=== PATIENT | male | born 1940 | race Caucasian/White ===

== ENCOUNTER 2024-03-17 06:56 | Day surgery (SDC) | payer MEDICARE, BC, SELFPAY ==
[2024-03-17] VITALS (21 sets, daily range): BP systolic 93–153; BP diastolic 69–93; PULSE 50–104; RESP 12–18; TEMP 35.3–36.4; O2SAT 92–98; BMI 30.6
[2024-03-17] MEDS: LACTATED RINGERS 1000 ML 1,000 ML 100 ML IV (07:10)
--- NOTE | 2024-03-17 07:28 | W.PM.H&PU ---
History & Physical Update History & Physical Update H&P Reviewed and patient assessed: No changes noted
--- NOTE | 2024-03-17 07:29 | XR_ITS ---
Patient: DENISE SRINIVASAN Facility:?[facility] Patient ID:?[id number] Site Patient ID:?[id number]. Site :?[id number] Study:?XRay-Knee Right 2 VIEW-03/17/2024 11:51:56 AM Ordering Physician:?LESIA GAONA Final Report: Indication: Postop TKA Technique: Two views right knee Findings/Impression: Hardware from a right total knee arthroplasty is in satisfactory position. Bone alignment is normal. No sign of acute fracture. Postop changes are within normal limits. Dictated by Lei Dash MD @ 03/17/2024 12:49:01 PM Signed by:?Lei Dash MD @03/17/2024 12:49:01 PM (Electronic Signature)
--- NOTE | 2024-03-17 07:52 | SUR.PREOP ---
Patient states he is ok with iodine topical scrubs. Dr. Nava states repairer typewriter okay to proceed with Profend Nasal Decolonization kit.
[2024-03-17] MEDS: OXYCODONE (CR) 10 MG TAB.ER.12H PO (08:09)
[2024-03-17] MEDS: ACETAMINOPHEN 500 MG TABLET 1000 MG PO ×3 (08:09→21:56)
--- NOTE | 2024-03-17 08:26 | SUR.PREOP ---
TIME?OUT:?08 PT/RN/MDA?VERIFICATION?OF?SURGICAL?SITE,?PROCEDURE,?AND?CONSENT OBTAINED?PRIOR?TO?INVASIVE?PROCEDURE.
[2024-03-17] MEDS: fentaNYL 100 MCG/2 ML inj IVP (08:34)
[2024-03-17] MEDS: MIDAZOLAM HCL 1 MG/ML inj IVP (08:34)
[2024-03-17] MEDS: CEFAZOLIN 2 GM in 0.9 % SODIUM CHLORIDE Mini-bag 100 ML IVPB ×3 (08:53→23:32)
[2024-03-17] MEDS: TRANEXAMIC ACID 100 MG/ML INJ 1000 MG IV (08:53)
--- NOTE | 2024-03-17 10:11 | P.ORPRC_ITS ---
Procedure Note Date of procedure: 03/17/24 Procedure: PREOPERATIVE DIAGNOSIS: 1. Right knee osteoarthritis, primary, severe POSTOPERATIVE DIAGNOSIS: 1. Right knee osteoarthritis, primary, severe PROCEDURE: 1. Right total knee arthroplasty - subvastus SURGEON: Robbie Duffy MD. IRRIGATION EQUIPMENT REMOVER: ANDREW Mccall - Of note, a skilled radiology practitioner assistant was critical for this case to aid in patient positioning, tissue retraction, limb manipulation/positioning, and closure. ANESTHESIA: Spinal anesthetic IMPLANTS: DePuy J&J all cemented TKA - Attune PS femur size 6 standard size 6 tibia, 5 poly spacer, 41mm patella TOURNIQUET: 90 min at 300 torr EBL: 50 ml COMPLICATIONS: None evident INDICATIONS: The patient is a pleasant 83-year-old male who has experienced severe right knee pain and difficulty bearing weight. Workup included x-rays which revealed severe osteoarthrosis in the knee. Given the deformity, the dysfunction, and the pain, as well as the failure of nonoperative management, recommendation was made for surgery. FINDINGS: Full-thickness chondral loss diffusely throughout the medial, lateral, and patellofemoral compartments. Moderate effusion upon entering the joint. Osteophytes diffusely including in the posterior compartment. DESCRIPTION OF PROCEDURE: Following a thorough discussion of risks, benefits, and alternatives consent was obtained and the right knee was marked. The patient was brought to the operating room and placed supine on the operating table. Induction of anesthesia was undertaken. 2 g IV Ancef and 1 g tranexamic acid was administered within 1 hr of incision preoperatively. Proper time-out was performed identifying proper patient, site, procedure. The operative extremity was prepped and draped in the appropriate sterile fashion using ChloraPrep after the patient was positioned supine with all bony prominences well padded. A longitudinal, anterior, midline skin incision was made starting approximately 3cm proximal to the superior pole of the patella and advanced distal to the tibial tubercle. A subvastus approach was utilized. A medial subperiosteal sleeve was created with knife, stallworth elevator and curved osteotome. The retropatellar fatpad was resected and the synovium in the suprapatellar pouch excised to visualize the anterior femoral cortex. Femoral preparation was performed via an intramedullary guide. Step drill allowed access into the femoral canal. The distal cutting guide was placed with 5? of valgus and 11 mm cut on the distal femur due to a 7-10 degree flexion contracture. Femur was sized using a anterior referencing guide in 3? of external rotation. This found have a best fit with the sizing noted above. The 4 in 1 cutting block was then placed, and the distal femur shaped accordingly. The box cut was then created and the trial implant inserted to confirm appropriate fit. We turned our attention to the proximal tibia. Extramedullary guide was utilized for cutting with the goal of being 90 degree cut from the mechanical axis of the tibia in the varus/valgus plane utilizing tibial crest as the primary alignment. Initially a 2 mm resection was performed from the medial tibial plateau. Ultimately, balancing was achieved in both flexion and extension in both varus and valgus. The knee was able to achieve full extension as well comfortably. The patella was initially measured and found have a thickness of 24 mm. It was resected back to approximately 14 mm. It was sized to be a best fit with as noted above. This was drilled, trial placed. All trials were placed and found to have an excellent stability and balance. At this stage, trial implants were removed, the knee was thoroughly irrigated with normal saline, and the cement was mixed. After irrigation, the knee was thoroughly dried, and cement placed, with the real tibial and femoral implants placed along with the patella. Trial poly spacer was placed and confirmed to have excellent range of motion and full extension, and the real poly spacer opened and inserted. All extra cement was removed, and a 3 min Betadine soak performed. Finally, a final irrigation round with normal saline was performed. Closure performed with 0 Vicryl and #0 Stratafix for the quad tendon/retinaculum. 2-0 Vicryl for the subcutaneous and 4-0 Stratafix for subcuticular closure. Dressings were applied and the patient was awoken from anesthesia after the tourniquet deflated and transferred the PACU in stable condition. A skilled radiology practitioner assistant was critical for this case to aid in patient positioning, tissue retraction, bone exposure, limb manipulation/positioning, patient safety, and closure. PLAN: 1. Weight bear as tolerated operative extremity. 2. 23 hr perioperative antibiotics. 3. Ice. 4. PT/OT consults for ambulation assistance/mobility education. 5. Social work consult for discharge planning. 6. DVT prophylaxis with at SCDs and aspirin twice daily.
--- NOTE | 2024-03-17 10:50 | W.ANESCHARGE ---
Anesthesia Charges Start Date/Time Anesthesia Start Date: 03/17/24 Anesthesia Start Time: 08:40 Stop Date/Time Anesthesia Stop Date: 03/17/24 Anesthesia Stop Time: 10:48
--- NOTE | 2024-03-17 10:57 | P.NB_ITS ---
Nerve Block Nerve Block Time Seen by Provider: 08:30 Date Seen: 03/17/24 Type of block requested by surgeon for post-operative analgesia: adductor canal Side: right Time out performed: Yes Verification of patient name: Yes Verification of date of : Yes Site marking: site marked Name of person performing procedure: Diogo Continuous monitoring Was continuous monitoring of O2 sat, B/P, color television console monitor, recorded every 15 minutes?: Yes Procedure Checklist: sterile prep, needles and gloves Ultrasound guided. Images saved: Yes Medications given in 5ml increments after negative aspiration: Ropivicaine %: 0.5 mL: 20 Needle gauge: 20 Decadron (mg): 10 Precedex (mcg): 25 Patient tolerated procedure well: Yes Additional comments: Needle noted adjacent to nerve Block Charges Block Charge (with Pro Fee): Femoral Nerve Use of Ultrasound Machine for Block: Yes- US Guidance/pain block
--- NOTE | 2024-03-17 10:58 | P.NB_ITS ---
Nerve Block Nerve Block Time Seen by Provider: 08:30 Date Seen: 03/17/24 Type of block requested by surgeon for post-operative analgesia: geniculars Side: right Time out performed: Yes Verification of patient name: Yes Verification of date of : Yes Site marking: site marked Name of person performing procedure: Diogo Continuous monitoring Was continuous monitoring of O2 sat, B/P, laboratory monitor, recorded every 15 minutes?: Yes Procedure Checklist: sterile prep, needles and gloves Medications given in 5ml increments after negative aspiration: Ropivicaine %: 0.5 mL: 9 Needle gauge: 25 Patient tolerated procedure well: Yes Block Charges Block Charge (with Pro Fee): Genicular Nerve Block Use of Ultrasound Machine for Block: No
--- NOTE | 2024-03-17 10:58 | W.ANESCHARGE ---
Anesthesia Charges Start Date/Time Anesthesia Start Date: 03/17/24 Anesthesia Start Time: 08:40 Stop Date/Time Anesthesia Stop Date: 03/17/24 Anesthesia Stop Time: 10:48 Summary Extremes of Age - Over 70 or under 1: MDA
[2024-03-17] MEDS: LACTATED RINGERS 1000 ML 1,000 ML 35 ML IV (11:21)
--- NOTE | 2024-03-17 11:23 | SUR.PHASEI ---
patient met discharge criteria per anesthesia
[2024-03-17] MEDS: OXYCODONE 5 MG TABLET PO (14:40)
--- NOTE | 2024-03-17 15:37 | PM.IMCN1 ---
Date of Consult Patient: [place] Patient Consult date: 03/17/24 Requesting Physician: Orthopedics Primary Care Provider: Branden Alvarenga MD Consult Narrative Reason for consult: Medical Management of Comorbidities Narrative: Jefferson Tan is a 83 year old male who presented to the hospital today for an elective RTKA with Dr. Duffy today. There were no surgical or anesthetic complications noted during procedure. Patient's H&P reviewed, PCP is Dr Alvarenga at [facility]. Past medical history significant for: diet controlled pre-DM2 (last A1C 6.3), essential HTN, prostate cancer, s/p TURP History of blood clots: No DVT or PE. Had a TIA in 1996 (this was one week after an elective hernia repair). No complications following his R TKA in 2013 Postoperative plan: Home (daughter and son-in-law will stay with him) Review of Systems Status of ROS: Reports: 10 or more systems reviewed and unremarkable except as noted in History and below [facility] Medical History (Updated 03/17/24 @ 15:36 by Tanisha Savage MD) Type 2 diabetes mellitus ?E11.9 - Type 2 diabetes mellitus without complications (ICD-10) TIA (transient ischemic attack) ?G45.9 - Transient cerebral ischemic attack, unspecified (ICD-10) Prostate cancer ?C61 - Malignant neoplasm of prostate (ICD-10) Hypertension ?I10 - Essential (primary) hypertension (ICD-10) Surgical History (Updated 03/17/24 @ 15:38 by Tanisha Savage MD) Status post right knee replacement ?Z96.651 - Presence of right artificial knee joint (ICD-10) S/P TURP ?Z90.79 - Acquired absence of other genital organ(s) (ICD-10) History of total left knee replacement ?Z96.652 - Presence of left artificial knee joint (ICD-10) H/O hernia repair ?Z98.890 - Other specified postprocedural states (ICD-10) ?Z87.19 - Personal history of other diseases of the digestive system (ICD-10) History of cholecystectomy ?Z90.49 - Acquired absence of other specified parts of digestive tract (ICD-10) History of carpal tunnel surgery of left wrist (02/11/22) ?Z98.890 - Other specified postprocedural states (ICD-10) Social History Problems where you live: no known problems Smoking Status: Never smoker Do you use any of these nicotine containing products: None How often do you have a drink containing alcohol: 4 or more times a week AUDIT-C Alcohol total score: 4 Non-prescribed substance use: denies use Caffeine: Yes Meds Home Medications and Allergies Home Medications Medication Instructions Recorded Confirmed Type aspirin 81 mg chewable tablet 81 mg PO DAILY 01/27/24 03/17/24 History hydrochlorothiazide 25 mg tablet 25 mg PO DAILY 01/27/24 03/15/24 History lisinopril 40 mg tablet 40 mg PO DAILY 01/27/24 03/15/24 History cholecalciferol (vitamin D3) 50 2,000 unit PO DAILY 03/15/24 03/15/24 History mcg (2,000 unit) capsule multivitamin 1 tab PO DAILY 03/15/24 03/15/24 History diphenhydramine HCl 25 mg capsule 25 mg PO HS PRN 03/17/24 03/17/24 History (Allergy (diphenhydramine)) Allergies Allergy/AdvReac Type Severity Reaction Status Date / Time Iodinated Contrast Media Allergy Unknown Verified 01/27/24 14:12 IVP dye Allergy hot flashes Uncoded 01/27/24 14:12 Exam Narrative: Exam Narrative: GEN: Alert and oriented, sitting comfortably in bedside chair and eating pickled loaiza CV: RRR, No concerning murmurs R: LCTA bilaterally without concerning wheezing Ext: wwp, no concerning edema Skin: No concerning skin lesions or rashes on exposed skin Neuro: Nonfocal Psych: Appropriate Const: Vital Signs, click to edit/add: Vital Signs - 24 hr 03/17/24 07:36 03/17/24 10:44 03/17/24 10:50 Temperature 97.2 F L 97.5 F L 97.5 F L Pulse Rate 70 62 58 L Respiratory Rate 16 13 12 Blood Pressure 153/87 H 104/69 108/69 Pulse Oximetry 95 94 93 Oxygen Delivery Me thod Room Air Room Air Room Air 03/17/24 10:55 03/17/24 11:00 03/17/24 11:05 Temperature 97.5 F L 97.5 F L 97.5 F L Pulse Rate 55 L 65 56 L Respiratory Rate 12 12 13 Blood Pressure 106/69 93/79 107/77 Pulse Oximetry 95 93 94 Oxygen Delivery Me thod Room Air Room Air Room Air 03/17/24 11:10 03/17/24 11:20 03/17/24 15:00 Temperature 97.1 F L 95.7 F L Pulse Rate 61 58 L Respiratory Rate 13 14 Blood Pressure 115/80 119/74 Pulse Oximetry 94 94 97 Oxygen Delivery Me thod Room Air Room Air Assessment and Plan Assessment and plan (1) Status post right knee replacement: Problem comment: - 03/17/24, Dr. Duffy Status: Acute Plan - pain management and prophylaxis per orthopedic surgery team - continue home medications for comorbidities, regular AccuChecks - anticipate routine postoperative course
--- NOTE | 2024-03-17 16:03 | PC.NURSE ---
End of shift-- Very pleasant and cooperative, alert and oriented patient arrived from PACU at approximately 1120. VSS and pt is afebrile. SPO2 maintained >93% on RA. He denied pain. Dressing to right knee is C/D/I. CMS WNL. Family is at bedside and appears loving and supportive. Report to oncoming shift.
[2024-03-17] MEDS: ASPIRIN 81 MG TABLET EC PO (20:12)
[2024-03-17] MEDS: SENNOSIDES 1 TAB TABLET 2 TAB PO (20:12)
[2024-03-18 04:00] VITALS: BP 156/96; PULSE 82; RESP 16; TEMP 36.3; O2SAT 95
[2024-03-18] MEDS: ACETAMINOPHEN 500 MG TABLET 1000 MG PO ×2 (04:19→11:04)
[2024-03-18 06:39] LABS: Hematocrit 38.9 % (37.0-53.0); Hemoglobin* 12.8 gm/dL (13.5-17.5); Immature Granulocytes Abs Auto 0.02 K/uL (0.00-0.30); Immature Granulocytes Pct Auto 0.2 %; Lymphocytes Percent Auto 6.8 % (20-44); Mean Corpuscular HGB Conc 33 gm/dL (32-36); Mean Corpuscular Hemoglobin 32 pg (26-34); Mean Corpuscular Volume 97 fL (80-100); Monocytes Percent Auto 5.1 % (0.0-11.0); Neutrophils Percent Auto 87.9 % (42.0-72.0); Platelet Count* 162 K/uL (140-440); RDW Coefficient of Variation % 12.7 % (11.5-15.5); White Blood Count* 10.05 K/uL (4.50-11.00)
[2024-03-18 06:48] LABS: Slide Review Reflex No
--- NOTE | 2024-03-18 06:52 | PC.NURSE ---
19-07: pleasant and cooperative. SBA with gb and walker. Rating pain 0-1/10. Active ice to op site. Dressing to knee CDI.
[2024-03-18 07:00] LABS: Potassium* 4.1 mmol/L (3.6-5.1); Sodium* 136 mmol/L (135-149)
[2024-03-18 07:03] LABS: Blood Urea Nitrogen* 27 mg/dL (7-30); Creatinine* 1.4 mg/dL (0.5-1.5); Est. Creatinine Clearance* 42.58; Estimated Glomerular Filt Rate 50 ml/min
[2024-03-18] MEDS: lisinopriL 20 MG TABLET 40 MG PO (08:10)
[2024-03-18] MEDS: SENNOSIDES 1 TAB TABLET 2 TAB PO (08:10)
[2024-03-18] MEDS: MULTIVITAMIN/MINERALS 1 TABLET 1 TAB PO (08:10)
[2024-03-18] MEDS: ASPIRIN 81 MG TABLET EC PO (08:10)
[2024-03-18 08:34] VITALS: O2SAT 95
[2024-03-18 08:37] VITALS: BP 152/87; PULSE 68; RESP 16; TEMP 36.4; O2SAT 95
--- NOTE | 2024-03-18 09:54 | P.ORPN_ITS ---
Subjective Subjective Date Seen: 03/18/24 Principal diagnosis: Status postop day 1 right total knee arthroplasty Interval history: Patient reports doing very well. No acute events over night. Pain is managed with acetaminophen, ice. DVT prophylaxis: 81 mg aspirin by mouth twice daily, SCDs, walking. Denies fevers, chills, aches, N/V, CP, SOB/HINSON, or lightheadedness. Passing flatus. Ortho Exam Narrative Exam Narrative: -Patient appears comfortable; no apparent acute distress -Alert and oriented times 3 -Operative knee mildly swollen; soft tissues supple; no ecchymosis; no erythematous streaking Warmth appropriate -Surgical dressing clean, dry, intact; no drainage -Bilateral calfs soft; no significant swelling, edema, tenderness, erythema, discoloration, warmth, or palpable cords -2+ DP/PT pulses, intact dermatomes and myotomes distally (5/5 strength) Const Vital Signs, click to edit/add: Vital Signs - 24 hr 03/17/24 10:44 03/17/24 10:50 03/17/24 10:55 Temperature 97.5 F L 97.5 F L 97.5 F L Pulse Rate 62 58 L 55 L Pulse Rate [Right Pulse Oximeter] Respiratory Rate 13 12 12 Blood Pressure 104/69 108/69 106/69 Blood Pressure [Right Arm] Pulse Oximetry 94 93 95 Oxygen Delivery Method Room Air Room Air Room Air 03/17/24 11:00 03/17/24 11:05 03/17/24 11:10 Temperature 97.5 F L 97.5 F L 97.1 F L Pulse Rate 65 56 L 61 Pulse Rate [Right Pulse Oximeter] Respiratory Rate 12 13 13 Blood Pressure 93/79 107/77 115/80 Blood Pressure [Right Arm] Pulse Oximetry 93 94 94 Oxygen Delivery Method Room Air Room Air Room Air 03/17/24 11:20 03/17/24 11:30 03/17/24 11:45 Temperature 95.7 F L 95.7 F L 95.6 F L Pulse Rate 58 L 50 L 59 L Pulse Rate [Right Pulse Oximeter] Respiratory Rate 14 18 18 Blood Pressure 119/74 126/78 130/83 Blood Pressure [Right Arm] Pulse Oximetry 94 94 94 Oxygen Delivery Method Room Air Room Air Room Air 03/17/24 12:00 03/17/24 12:15 03/17/24 12:45 Temperature 95.9 F L Pulse Rate 51 L 51 L 61 Pulse Rate [Right Pulse Oximeter] Respiratory Rate 16 16 16 Blood Pressure 128/76 130/81 129/83 Blood Pressure [Right Arm] Pulse Oximetry 93 94 97 Oxygen Delivery Method Room Air Room Air Room Air 03/17/24 13:15 03/17/24 14:00 03/17/24 15:00 Temperature Pulse Rate 66 58 L Pulse Rate [Right Pulse Oximeter] Respiratory Rate 16 16 Blood Pressure 131/86 132/74 Blood Pressure [Right Arm] Pulse Oximetry 97 97 97 Oxygen Delivery Method Room Air Room Air 03/17/24 15:00 03/17/24 17:12 03/17/24 18:00 Temperature 97.0 F L 97.0 F L Pulse Rate 76 78 104 H Pulse Rate [Right Pulse Oximeter] Respiratory Rate 16 16 18 Blood Pressure 142/82 H 131/74 133/93 H Blood Pressure [Right Arm] Pulse Oximetry 94 95 98 Oxygen Delivery Method Room Air Room Air Room Air 03/17/24 19:00 03/17/24 22:49 03/17/24 22:49 Temperature 97.3 F L 97.3 F L Pulse Rate Pulse Rate [Right Pulse Oximeter] 81 80 Respiratory Rate 18 18 16 Blood Pressure Blood Pressure [Right Arm] 134/81 138/81 Pulse Oximetry 92 93 Oxygen Delivery Method Room Air Room Air 03/17/24 23:00 03/18/24 04:00 03/18/24 08:34 Temperature 97.3 F L Pulse Rate Pulse Rate [Right Pulse Oximeter] 82 Respiratory Rate 16 Blood Pressure Blood Pressure [Right Arm] 156/96 H Pulse Oximetry 93 95 95 Oxygen Delivery Method Room Air 03/18/24 08:37 Temperature 97.5 F L Pulse Rate Pulse Rate [Right Pulse Oximeter] 68 Respiratory Rate 16 Blood Pressure Blood Pressure [Right Arm] 152/87 H Pulse Oximetry 95 Oxygen Delivery Method Room Air Assessment and Plan Assessment and plan (1) Status post right knee replacement: Problem details: - 03/17/24, Dr. Duffy Status: Acute Plan - Complete 23 hour perioperative antibiotics. - PT/OT consult for education and assistance. - Social work consult for discharge planning - Prescribed analgesics as needed - DVT prophylaxis: 81 mg aspirin by mouth twice daily and SCDs - Anticipation is for discharge to home with family 03/18/2024 if the patient remains medically stable, pain is controlled, and they are safe with m obilization.
--- NOTE | 2024-03-18 14:16 | PC.NURSE ---
Discharge - Pt alert, oriented, cooperative. Up to chair, with PT/OT with standby assistance and walker. Pt tolerating RA, regular diet, fluids. VSS, afebrile. Pt reported little to no pain in surgical knee and rated pain as 0-1/10. Managed with medication per JAN. Dressing CDI, ice in place. IV removed with catheter intact. Discharge education given with verbalized understanding. Pt d/c'd to home with family member via wheelchair at approximately 1145.
== END 2024-03-18 11:45 | disposition home or self-care (01) ==
LOC: OR 06:58 → MEDSURG 07:01
PROVIDERS: PCP Family Medicine; Visit Provider Orthopaedic Surgery Sports Medicine
PROC: (CPT 27447; principal; 2024-03-17 08:30)
DX: M17.11 Unilateral primary osteoarthritis, right knee (principal); G89.18 Other acute postprocedural pain; I10 Essential (primary) hypertension; E11.9 Type 2 diabetes mellitus without complications; Z86.73 Personal history of transient ischemic attack (TIA), and cerebral infarction without residual deficits
CPT/HCPCS: 27447; 01402; 36415; 64447; 64454; 73560; 76942; 82565; 82962; 84132; 84295; 84520; 85025; 97110; 97116; 97161; 97165; 97530; 99100; A9153; A9270; C1776; J0690; J1100; J2250; J2371; J2704; J2795; J3010; J7120

== ENCOUNTER 2024-04-25 15:31 | Observation (INO) | payer MEDICARE, BC, SELFPAY ==
[2024-04-25] VITALS (26 sets, daily range): BP systolic 120–153; BP diastolic 72–93; PULSE 60–77; RESP 16–18; TEMP 36.6–36.7; O2SAT 92–99; BMI 28.7; BMI 29.4
[2024-04-25] MEDS: 0.9 % SODIUM CHLORIDE 500 ML 500 ML IV (16:05)
[2024-04-25 16:20] LABS: Lactate Sepsis w/Reflex* 1.3 mmol/L (0.5-1.9)
[2024-04-25 16:30] LABS: Basophils Absolute Auto 0.01 K/uL (0.00-0.30); Basophils Percent Auto 0.2 % (0.0-3.0); Eosinophils Absolute Auto 0.13 K/uL (0.00-0.50); Eosinophils Percent Auto 2.1 % (0.0-7.0); Hematocrit 30.2 % (37.0-53.0); Hemoglobin* 9.7 gm/dL (13.5-17.5); Immature Granulocytes Abs Auto 0.01 K/uL (0.00-0.30); Immature Granulocytes Pct Auto 0.2 %; Lymphocytes Percent Auto 16.8 % (20-44); Mean Corpuscular HGB Conc 32 gm/dL (32-36); Mean Corpuscular Hemoglobin 32 pg (26-34); Mean Corpuscular Volume 100 fL (80-100); Monocytes Percent Auto 6.5 % (0.0-11.0); Neutrophils Percent Auto 74.2 % (42.0-72.0); Platelet Count* 189 K/uL (140-440); RDW Coefficient of Variation % 13.3 % (11.5-15.5); Red Blood Count 3.02 m/uL (4.30-5.90); White Blood Count* 6.19 K/uL (4.50-11.00)
[2024-04-25 16:35] LABS: Slide Review Reflex No
[2024-04-25 16:42] LABS: Chloride* 104 mmol/L (96-114)
[2024-04-25 16:43] LABS: Potassium* 3.8 mmol/L (3.6-5.1); Sodium* 137 mmol/L (135-149)
[2024-04-25 16:44] LABS: INR 0.94 (0.91-1.10); Prothrombin Time 13.2 Seconds
[2024-04-25 16:45] LABS: Creatinine* 1.4 mg/dL (0.5-1.5); Est. Creatinine Clearance* 42.58; Estimated Glomerular Filt Rate 50 ml/min; Partial Thromboplastin Time* 29 Seconds (23-33)
--- NOTE | 2024-04-25 16:45 | ED.GENADULT ---
HPI - General Adult General Date Seen: 04/25/24 Chief complaint: Weakness Stated complaint: Black stool/vomit low hemoglobin, no energy, dizzy Time Seen by Provider: 04/25/24 15:58 Source: patient and family Mode of arrival: ambulatory Limitations: no limitations History of Present Illness HPI narrative: Patient is an 83-year-old male who is about 1 month status post right knee replacement, says he has been really doing well in terms of the knee. A few days ago he was seen in urgent care with melena, hemoglobin had dropped a couple of g. He was on 2 baby aspirin a day and they recommended that he switch to just 1 baby aspirin a day, started omeprazole. He has no history of prior GI bleed. He notes that he does not take nonsteroidals such as ibuprofen or leave. He does drink, he estimates about every other day although he says he has not had any alcohol in the past week because he has not felt well. Colonoscopy done around age 70 showed a small polyp, otherwise negative by his report. He has never had endoscopy and has no history of gastric ulcers. He does not have any abdominal pain. He comes in today primarily because he says he just exhausted, does not have any energy. Was not even able to make a to mosque today because by the time he got dressed and ready he was too tired. He had 1 more dark stool day before yesterday, none yesterday and just a small amount today. He has not had chest pain or difficulty breathing, has not had any unusual leg swelling or pain. Reported fevers to Urgent Care, not clear that he has had ongoing fevers. Temperature here is normal. Related Data Home Medications ?Medication ?Instructions ?Recorded ?Confirmed aspirin 81 mg chewable tablet 81 mg PO DAILY 01/27/24 04/22/24 hydrochlorothiazide 25 mg tablet 25 mg PO DAILY 01/27/24 04/22/24 lisinopril 40 mg tablet 40 mg PO DAILY 01/27/24 04/22/24 cholecalciferol (vitamin D3) 50 2,000 unit PO DAILY 03/15/24 04/22/24 mcg (2,000 unit) capsule multivitamin 1 tab PO DAILY 03/15/24 04/22/24 diphenhydramine HCl 25 mg capsule 25 mg PO HS PRN 03/17/24 04/22/24 (Allergy (diphenhydramine)) Previous Rx's ?Medication ?Instructions ?Recorded acetaminophen 500 mg capsule 500 - 1,000 mg (1 - 2 x 500 mg) PO 03/18/24 Q6H PRN #100 caps aspirin 81 mg tablet,delayed 81 mg PO BID #60 tabs 03/18/24 release Allergies Allergy/AdvReac Type Severity Reaction Status Date / Time Iodinated Contrast Media Allergy Unknown Verified 04/22/24 09:49 IVP dye Allergy hot flashes Uncoded 04/22/24 09:49 Review of Systems Status of ROS: Reports: 10 or more systems reviewed and unremarkable except as noted in History and below [facility] Medical History Enteritis ?K52.9 - Noninfective gastroenteritis and colitis, unspecified (ICD-10) Cystitis ?N30.90 - Cystitis, unspecified without hematuria (ICD-10) Type 2 diabetes mellitus ?E11.9 - Type 2 diabetes mellitus without complications (ICD-10) TIA (transient ischemic attack) ?G45.9 - Transient cerebral ischemic attack, unspecified (ICD-10) Prostate cancer ?C61 - Malignant neoplasm of prostate (ICD-10) Hypertension ?I10 - Essential (primary) hypertension (ICD-10) Surgical History Status post right knee replacement (03/17/24) ?Z96.651 - Presence of right artificial knee joint (ICD-10) S/P TURP ?Z90.79 - Acquired absence of other genital organ(s) (ICD-10) History of total left knee replacement ?Z96.652 - Presence of left artificial knee joint (ICD-10) H/O hernia repair ?Z98.890 - Other specified postprocedural states (ICD-10) ?Z87.19 - Personal history of other diseases of the digestive system (ICD-10) History of cholecystectomy ?Z90.49 - Acquired absence of other specified parts of digestive tract (ICD-10) History of carpal tunnel surgery of left wrist (02/11/22) ?Z98.890 - Other specified postprocedural states (ICD-10) Social History Problems where you live: no known problems Smoking Status: Never smoker Do you use any of these nicotine containing products: None How often do you have a drink containing alcohol: 4 or more times a week AUDIT-C Alcohol total score: 4 Non-prescribed substance use: denies use Caffeine: Yes Exam Narrative: Exam Narrative: Vital signs as noted above. In general, an alert, well-appearing patient. Head: Normocephalic, atraumatic. Eyes: Pupils are equal reactive. Extraocular movements are full. Conjunctivae are normal. ENT: Mucous membranes are moist. Throat is normal. Neck: Supple without lymphadenopathy. Heart: Regular rate and rhythm. No murmur or rub. Lungs: Clear bilaterally. No increased work of breathing, crackles or wheezes. Abdomen: Soft and nontender. Rectal: stool is dark, normal consistency. Fecal occult blood pending. Extremities: Well perfused. Some swelling is noted around the right knee, well-healed incision without evidence of infection. No lower extremity edema otherwise, no calf tenderness.. Distal CMS intact. Neurologic: Patient is alert and oriented to person and place. Speech is fluent. Face is symmetric. Moves all extremities equally. Affect: Normal. Skin: Warm and dry. Well perfused. Const: Vital Signs, click to edit/add: Vital Signs - 24 hr 04/25/24 15:42 04/25/24 16:15 04/25/24 16:30 Temperature 98.1 F Pulse Rate 69 70 Pulse Rate [Pulse Oximeter] 77 Respiratory Rate 18 Blood Pressure Blood Pressure [Ri ght Upper Arm] 138/88 Pulse Oximetry 96 96 [facility] 04/25/24 16:32 04/25/24 16:45 04/25/24 17:00 Temperature Pulse Rate 60 74 73 Pulse Rate [Pulse Oximeter] Respiratory Rate Blood Pressure 121/75 Blood Pressure [Ri ght Upper Arm] Pulse Oximetry 96 97 96 Oxygen Delivery Co thod 04/25/24 17:02 04/25/24 17:15 04/25/24 17:30 Temperature Pulse Rate 72 68 69 Pulse Rate [Pulse Oximeter] Respiratory Rate Blood Pressure 133/74 Blood Pressure [Ri ght Upper Arm] Pulse Oximetry 94 99 97 [facility] 04/25/24 17:32 Temperature Pulse Rate 61 Pulse Rate [Pulse Oximeter] Respiratory Rate Blood Pressure 121/77 Blood Pressure [Ri ght Upper Arm] Pulse Oximetry 97 Oxygen Delivery Me thod Course Course ED Course: Following initial evaluation, an IV was established. Did give him 500 mL of normal saline, an EKG was done which showed a normal sinus rhythm, ventricular rate of 66. No ST segment changes, T-waves are unremarkable. Point of care troponin is negative. Labs are most notable for hemoglobin of 9.7, down an additional g compared to the 6th. This is now down 3 g from his postoperative hemoglobin of 12.8. His fecal occult blood is positive, continues to have dark stools albeit not large amounts at this time. Vital signs are reassuring. Electrolytes are normal, coags are normal. CRP 0.6, abdominal exam is benign. I did recommend that he stay in the hospital at this point I think he is having ongoing bleeding, he is symptomatic from the standpoint of fatigue and weakness. Does not require transfusion at this time but type and screen was sent. Accepted by hospitalist service. We do not have prior abdominal imaging on this patient. His LFTs are normal, it sounds as if he drinks fairly regularly, should consider possible esophageal varices. We Protonix here, was going to order a CT and for GI bleed protocol, but he lists allergies to contrast. This is reportedly his caused really hot flashes. Suspect this may just be normal symptoms from administration of IV contrast, but will go ahead and a pre treat used a possible allergy and then do a CT scan on the floor. Vital Signs Vital signs: Initial Vital Signs Temperature 98.1 F 04/25/24 15:42 Temperature Source Temporal Artery Scan 04/25/24 15:42 Pulse Rate 77 04/25/24 15:42 Pulse Rhythm Regular 04/25/24 15:42 Respiratory Rate 18 04/25/24 15:42 Blood Pressure 138/88 04/25/24 15:42 Blood Pressure Mean 104 04/25/24 15:42 Blood Pressure Position Sitting 04/25/24 15:42 Pulse Oximetry 96 04/25/24 15:42 Oxygen Delivery Method Room Air 04/25/24 15:42 Vital Signs Temperature 98.1 F 04/25/24 15:42 Pulse Rate 77 04/25/24 15:42 Respiratory Rate 18 04/25/24 15:42 Blood Pressure 138/88 04/25/24 15:42 Pulse Oximetry 96 04/25/24 15:42 Oxygen Delivery Method Room Air 04/25/24 15:42 Temperature 98.1 F 04/25/24 15:42 Pulse Rate 61 04/25/24 17:32 Respiratory Rate 18 04/25/24 15:42 Blood Pressure 121/77 04/25/24 17:32 Pulse Oximetry 97 04/25/24 17:32 Oxygen Delivery Method Room Air 04/25/24 15:42 Medications Administered Medications: Discontinued Medications Generic Name Dose Route Start Last Admin Trade Name Mica PRN Reason Stop Dose Admin Sodium Chloride 500 mls @ 500 mls/hr 04/25/24 16:14 04/25/24 17:13 0.9 % Sodium Chloride 500 Ml IV 04/25/24 17:13 Infused .Q1H ONE Infusion Medical Decision Making Lab Data Labs: Lab Results 04/25/24 04/25/24 04/25/24 Range/Units 16:03 16:11 16:45 WBC 6.19 (4.50-11.00) K/uL RBC 3.02 L (4.30-5.90) m/uL Hgb 9.7 L (13.5-17.5) gm/dL Hct 30.2 L (37.0-53.0) % MCV 100 (80-100) fL MCH 32 (26-34) pg MCHC 32 (32-36) gm/dL RDW Coeff of Miguel 13.3 (11.5-15.5) % Plt Count 189 (140-440) K/uL Neut % (Auto) 74.2 H (42.0-72.0) % Lymph % (Auto) 16.8 L (20-44) % [place] % (Auto) 6.5 (0.0-11.0) % Eos % (Auto) 2.1 (0.0-7.0) % Baso % (Auto) 0.2 (0.0-3.0) % Neut # (Auto) 4.60 (1.7-7.0) K/uL Lymph # (Auto) 1.00 (0.90-2.90) K/uL [place] # (Auto) 0.40 (0.00-0.90) K/UL Eos # (Auto) 0.13 (0.00-0.50) K/uL Baso # (Auto) 0.01 (0.00-0.30) K/uL Abs Immat Gran (auto) 0.01 (0.00-0.30) K/uL Imm/Tot Granulo (auto) 0.2 % INR 0.94 (0.91-1.10) APTT 29 (23-33) Seconds Sodium 137 (135-149) mmol/L Potassium 3.8 (3.6-5.1) mmol/L Chloride 104 (96-114) mmol/L Carbon Dioxide 27 (20-32) mmol/L Anion Gap 6 L (7-15) mEq/L BUN 26 (7-30) mg/dL Creatinine 1.4 (0.5-1.5) mg/dL Estimated Creat Clear 42.58 Estimated GFR 50 ml/min Glucose 127 H (60-115) mg/dL Lactate 1.3 (0.5-1.9) mmol/L Calcium 9.1 (8.4-10.6) mg/dL Total Bilirubin 0.5 (0.1-1.5) mg/dL Direct Bilirubin 0.4 (0.0-0.5) mg/dL AST 22 (12-35) U/L ALT 15 (4-50) U/L Alkaline Phosphatase 142 (40-150) U/L Troponin I < 0.01 L (0.01-0.04) ng/mL C-Reactive Protein 0.6 (0.5-1.0) mg/dL Total Protein 6.6 (6.0-8.3) g/dL Albumin 4.0 (3.3-5.0) g/dL Stool Occult Blood Positive (Negative) Discharge Plan Discharge Clinical Impression: Acute GI bleeding Prescriptions: No Action lisinopril 40 mg tablet 40 mg PO DAILY hydrochlorothiazide 25 mg tablet 25 mg PO DAILY aspirin 81 mg tablet,chewable 81 mg PO DAILY Hold Instructions: Resume on 04/18/24. He will be taking aspirin 81 mg twice daily as prescribed for DVT protection postoperative. multivitamin Tablet 1 tab PO DAILY cholecalciferol (vitamin D3) 50 mcg (2,000 unit) capsule 2,000 unit PO DAILY diphenhydramine HCl [Allergy (diphenhydramine)] 25 mg capsule 25 mg PO HS PRN aspirin 81 mg tablet,delayed release (DR/EC) 81 mg PO BID Qty: 60 0RF Rx Instructions: Medication to help prevent blood clots postoperatively; take TWICE daily. acetaminophen 500 mg capsule 500 - 1,000 mg PO Q6H MDD 4000mg PRNQty: 100 0RF Follow Up/Referrals: Branden Alvarenga MD [Primary Care Provider] -
[2024-04-25 16:46] LABS: Anion Gap 6 mEq/L (7-15); Blood Urea Nitrogen* 26 mg/dL (7-30); Carbon Dioxide* 27 mmol/L (20-32); Glucose* 127 mg/dL (60-115)
[2024-04-25 16:47] LABS: Alanine Aminotransferase* 15 U/L (4-50); Alkaline Phosphatase* 142 U/L (40-150); Aspartate Amino Transferase* 22 U/L (12-35); Bilirubin Direct* 0.4 mg/dL (0.0-0.5); Bilirubin Total* 0.5 mg/dL (0.1-1.5); Calcium* 9.1 mg/dL (8.4-10.6); Total Protein* 6.6 g/dL (6.0-8.3)
[2024-04-25 16:49] LABS: C Reactive Protein* 0.6 mg/dL (0.5-1.0)
[2024-04-25 17:05] LABS: Troponin I* < 0.01 ng/mL (0.01-0.04)
[2024-04-25 17:06] LABS: Fecal Occult Blood* Positive (Negative)
--- NOTE | 2024-04-25 18:01 | PM.IMHP1 ---
Hospitalist- H&P: HPI History of Present Illness Date Seen: 04/25/24 Chief complaint: Black stool/vomit low hemoglobin, no energy, dizzy Narrative: ADMISSION HISTORY AND PHYSICAL - HOSPITALIST Chief Complaint: weak, black stools HPI: 83 y/o WM with a recent hx of TKA (right) at our hospital on 03/17/24 (Dr. Piper) presents with 3-4 days of black stools, increasing weakness. His VTE prophylaxis has been 81mg aspirin BID since surgery. No other anticoagulation. He went to urgent care and his aspirin was reduced to once daily, his hemoglobin was down two grams (12.8 post op to 10.8 at urgent care). He presented today with increasing weakness and continued black stools. He also has had vomiting earlier this week with black emesis. His last colonoscopy was 2017 with noted diverticula but otherwise negative. No previous GI bleed history. No ulcer hx. No abdominal pain. ER COURSE: labs, rectal exam reveals black stool that is heme pos, and fluids. CT was ordered as he arrived to the floor for pretreatment secondary to contrast dye. CODE STATUS: EMERGENCY CONTACT PLAN: Primary Contact Name Ashley Espinosa Rel To Pat Daughter I've updated the PFSH, medications and allergies in the Expanse tabs. INVESTIGATIONS: LABS/MICRO/ECG/IMAGING No elevation in his white blood cell count Historically and there is a listed hemoglobin at 16.3 and 2016 Postoperatively from his knee about a month ago he was 12.8, 3 days prior to admission he is 10.8 and tonight he is 9.7 Normal platelet INR 0.9 Normal electrolytes, BUN is 26 creatinine is 1.4 Lactate is normal LFTs are normal Troponin is undetectable CRP 0.6 Positive stool occult blood 07/21/[address] Jaimes Findings: The perianal and digital rectal examinations were normal. Multiple small and large-mouthed diverticula were found in the sigmoid colon and descending colon. There was narrowing of the colon in association with the diverticular opening. There was evidence of diverticular spasm. The exam was otherwise without abnormality on direct and retroflexion views. Impressions/Post-Op Diagnosis: - Moderate diverticulosis in the sigmoid colon and in the descending colon. There was narrowing of the colon in association with the diverticular opening. There was evidence of diverticular spasm. - The examination was otherwise normal on direct and retroflexion views. - No specimens collected. REVIEW OF SYSTEMS: 12-point ROS completed with patient and negative unless otherwise stated in HPI or below. PHYSICAL EXAM: CONSTITUTIONAL: Conversive, good historian. A/O. Knows setting and context. VITAL SIGNS: see record. HEENT: Normocephalic, atraumatic. PERRL, EOMI, conjunctivae pink, no scleral icterus. Ears and nose externally normal. Pharynx normal. NECK: No JVD. No carotid bruit, no thyromegaly, no adenopathy. CHEST: Clear to auscultation bilaterally HEART: S1 and S2 normal. No harsh murmurs. Edema MUSCULOSKELETAL: No gross joint deformity or swelling. NEURO: Cranial nerves intact. Grossly intact. No asymmetric findings. SKIN: No rashes, petechiae, concerning changes PSYCHIATRIC: Euthymic. ADMIT TO MEDSURG: CCU FLOOR CARE DVT: Lovenox GI: PO intake Time spent: Today I spent 75 minutes seeing the patient, discussing the patient with ER staff, reviewing Expanse and EPIC notes/diagnostics, discussing the care plan with our care time that includes social work, PT/OT, pharmacy, RT, mcc and documenting my impressions and plan in the medical record. 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 - Lesion of ulnar nerve, left upper limb (ICD-10) Type 2 diabetes mellitus ?E11.9 - Type 2 diabetes mellitus without complications (ICD-10) TIA (transient ischemic attack) ?G45.9 - Transient cerebral ischemic attack, unspecified (ICD-10) Prostate cancer ?C61 - Malignant neoplasm of prostate (ICD-10) Hypertension ?I10 - Essential (primary) hypertension (ICD-10) Surgical History Status post right knee replacement (03/17/24) ?Z96.651 - Presence of right artificial knee joint (ICD-10) S/P TURP ?Z90.79 - Acquired absence of other genital organ(s) (ICD-10) History of total left knee replacement ?Z96.652 - Presence of left artificial knee joint (ICD-10) H/O hernia repair ?Z98.890 - Other specified postprocedural states (ICD-10) ?Z87.19 - Personal history of other diseases of the digestive system (ICD-10) History of cholecystectomy ?Z90.49 - Acquired absence of other specified parts of digestive tract (ICD-10) History of carpal tunnel surgery of left wrist (02/11/22) ?Z98.890 - Other specified postprocedural states (ICD-10) Social History Problems where you live: no known problems Smoking Status: Never smoker Do you use any of these nicotine containing products: None How often do you have a drink containing alcohol: 4 or more times a week AUDIT-C Alcohol total score: 4 Non-prescribed substance use: denies use Caffeine: Yes Meds Home Medications and Allergies Home Medications ?Medication ?Instructions ?Recorded ?Confirmed ?Type aspirin 81 mg chewable tablet 81 mg PO DAILY 01/27/24 04/22/24 History hydrochlorothiazide 25 mg tablet 25 mg PO DAILY 01/27/24 04/22/24 History lisinopril 40 mg tablet 40 mg PO DAILY 01/27/24 04/22/24 History cholecalciferol (vitamin D3) 50 2,000 unit PO DAILY 03/15/24 04/22/24 History mcg (2,000 unit) capsule multivitamin 1 tab PO DAILY 03/15/24 04/22/24 History diphenhydramine HCl 25 mg capsule 25 mg PO HS PRN 03/17/24 04/22/24 History (Allergy (diphenhydramine)) Allergies Allergy/AdvReac Type Severity Reaction Status Date / Time Iodinated Contrast Media Allergy Severe Anaphylaxis Verified 04/25/24 18:32 IVP dye Allergy hot flashes Uncoded 04/22/24 09:49 Exam Const: Vital Signs, click to edit/add: Vital Signs - 24 hr 04/25/24 15:42 04/25/24 16:15 04/25/24 16:30 Temperature 98.1 F Pulse Rate 69 70 Pulse Rate [Pulse Oximeter] 77 Respiratory Rate 18 Blood Pressure Blood Pressure [Ri ght Upper Arm] 138/88 Pulse Oximetry 96 96 97 Oxygen Delivery Me thod Room Air 04/25/24 16:32 04/25/24 16:45 04/25/24 17:00 Temperature Pulse Rate 60 74 73 Pulse Rate [Pulse Oximeter] Respiratory Rate Blood Pressure 121/75 Blood Pressure [Ri ght Upper Arm] Pulse Oximetry 96 97 96 [facility] 04/25/24 17:02 04/25/24 17:15 04/25/24 17:30 Temperature Pulse Rate 72 68 69 Pulse Rate [Pulse Oximeter] Respiratory Rate Blood Pressure 133/74 Blood Pressure [Ri ght Upper Arm] Pulse Oximetry 94 99 97 [facility] 04/25/24 17:32 04/25/24 17:33 04/25/24 17:45 Temperature Pulse Rate 61 67 68 Pulse Rate [Pulse Oximeter] Respiratory Rate Blood Pressure 121/77 Blood Pressure [Ri ght Upper Arm] Pulse Oximetry 97 97 98 Oxygen Delivery [facility] Hospitalist - H&P: Result Labs Labs: Short CBC 04/25/24 Range/Units 16:03 WBC 6.19 (4.50-11.00) K/uL Hgb 9.7 L (13.5-17.5) gm/dL Hct 30.2 L (37.0-53.0) % Plt Count 189 (140-440) K/uL BMP 04/25/24 16:03 Sodium 137 Potassium 3.8 Chloride 104 Carbon Dioxide 27 BUN 26 Creatinine 1.4 Glucose 127 H Calcium 9.1 Cardiac Enzymes 04/25/24 Range/Units 16:03 Troponin I < 0.01 L (0.01-0.04) ng/mL Liver Function 04/25/24 Range/Units 16:03 Total Bilirubin 0.5 (0.1-1.5) mg/dL Direct Bilirubin 0.4 (0.0-0.5) mg/dL AST 22 (12-35) U/L ALT 15 (4-50) U/L Alkaline Phosphatase 142 (40-150) U/L Albumin 4.0 (3.3-5.0) g/dL Assessment and Plan Assessment and plan (1) Acute GI bleeding: Problem comment: serial hgb IV pantoprazole clear diet fluids CT abdomen/pelvis ordered, then held, secondary to anaphylaxis in the in the radiology department. Can consider am of 04/26 with full staffing available. EGD ordered for am of 04/26 Status: Acute (2) ABLA (acute blood loss anemia): Problem comment: will transfuse less than 8 monitor hgb q 6 hours Status: Acute (3) Hypertension: Problem comment: monitor - holding home meds and add back as needed Status: Acute (4) Status post right knee replacement: Problem comment: - 03/17/24, Dr. Duffy Status: Acute (5) Type 2 diabetes mellitus: Problem comment: - diet controlled, last A1C 6.3 Status: Acute
[2024-04-25] MEDS: PANTOPRAZOLE SODIUM 40 MG INJ IVP (18:15)
[2024-04-25] MEDS: HYDROCORTISONE SOD SUCCINATE 50 MG/ML inj 100 MG IVP (18:15)
[2024-04-25] MEDS: diphenhydrAMINE 50 MG/ML inj IVP (18:16)
[2024-04-25 18:20] LABS: PCO2 VBG 45 mmHG (40-50); PO2 VBG 39.8 mmHG (25-47); pH VBG 7.394 (7.32-7.43)
[2024-04-25 18:21] LABS: HCO3 VBG 28 mmol/L (21-28)
[2024-04-25 18:49] LABS: Iron* 47 ug/dL (49-181)
[2024-04-25 18:58] LABS: Percent Iron Saturation 15 % (20-50); Total Iron Binding Capacity 311 ug/dL (261-462)
[2024-04-25] MEDS: 5 % DEX/0.9 SOD CHL+KCL 20 mEq 1,000 ML 125 ML IV (19:36)
[2024-04-25] MEDS: SODIUM CHLORIDE 0.9 % (FLUSH) 10 ML SYRINGE 5 ML IVF (20:32)
[2024-04-25] MEDS: INSULIN ASPART 100 UNIT/ML SUBCUT (21:21)
[2024-04-26] VITALS (9 sets, daily range): BP systolic 113–138; BP diastolic 58–81; PULSE 59–96; RESP 16–18; TEMP 36.3–36.7; O2SAT 91–100
[2024-04-26] MEDS: 5 % DEX/0.9 SOD CHL+KCL 20 mEq 1,000 ML 125 ML IV (03:11)
[2024-04-26 04:33] LABS: Hemoglobin* 9.1 gm/dL (13.5-17.5)
[2024-04-26 04:38] LABS: Chloride* 109 mmol/L (96-114); Potassium* 4.1 mmol/L (3.6-5.1); Sodium* 138 mmol/L (135-149)
[2024-04-26 04:41] LABS: Anion Gap 3 mEq/L (7-15); Blood Urea Nitrogen* 21 mg/dL (7-30); Carbon Dioxide* 26 mmol/L (20-32); Creatinine* 1.3 mg/dL (0.5-1.5); Est. Creatinine Clearance* 45.86; Estimated Glomerular Filt Rate 55 ml/min
[2024-04-26 04:42] LABS: Calcium* 8.7 mg/dL (8.4-10.6); Glucose* 183 mg/dL (60-115)
--- NOTE | 2024-04-26 06:47 | PC.NURSE ---
End of shift note [id number]: Pt alert & oriented x 4 and able to make needs known. He has been denying pain when asked. Pt has been denying nausea when asked with no vomiting noted. Pt currently NPO in preparation for upper endoscopy/EGD to be completed today. VSS and pt has been afebrile. IV to L AC patent with D5NS with 20 mEq of K+ running at 125 mL/hr per order. Blood glucose of 161 noted at HS. Pt reports, ?I?m not diabetic, I?ve only been told I?m prediabetic?. He has been continent of bladder and has not had a BM this shift. Last Hgb result of 9.1 at 0410. Pt transferring/ambulating well with SBA using FWW. Pt refused SCDs for most of the shift.
--- NOTE | 2024-04-26 09:53 | PM.IMPN1 ---
Progress Note: A&P Assessment and plan (1) Acute GI bleeding: Problem details: serial hgb IV pantoprazole clear diet fluids CT abdomen/pelvis ordered, then held, secondary to anaphylaxis in the in the radiology department. Can consider am of 04/26 with full staffing available. EGD ordered for am of 04/26 04/26: hold off on CT AP denies abdominal pain this AM, denies melena; Hgb stabilized, EGD pending Status: Acute (2) ABLA (acute blood loss anemia): Problem details: will transfuse less than 8 monitor hgb q 6 hours Status: Acute (3) Hypertension: Problem details: monitor - holding home meds and add back as needed Status: Acute (4) Status post right knee replacement: Problem details: - 03/17/24, Dr. Duffy Status: Acute (5) Type 2 diabetes mellitus: Problem details: - diet controlled, last A1C 6.3 Status: Acute Plan EGD today anticipated discharge Friday Subjective Date Seen: 04/26/24 Interval history: no acute events overnight patient remains npo serial hgb stable EGD pending no melena Exam Narrative: Exam Narrative: Gen: no acute distress HEENT: NCAT EOMI mmm CV: RRR normal s1 s2 Lungs: CTAB Abd: Soft,nt, nd Neuro: Alert, oriented, CN grossly intact; nonfocal screening?exam Psych: appropriate affect MSK: age appropriate muscle mass Skin; Warm, dry no rash on face Const: Vital Signs, click to edit/add: Vital Signs - 24 hr 04/25/24 15:42 04/25/24 16:15 04/25/24 16:30 Temperature 98.1 F Pulse Rate 69 70 Pulse Rate [Pulse Oximeter] 77 Respiratory Rate 18 Blood Pressure Blood Pressure [Le ft Arm] Blood Pressure [Ri ght Arm] Blood Pressure [Ri ght Upper Arm] 138/88 Pulse Oximetry 96 96 97 Oxygen Delivery Me thod Room Air 04/25/24 16:32 04/25/24 16:45 04/25/24 17:00 Temperature Pulse Rate 60 74 73 Pulse Rate [Pulse Oximeter] Respiratory Rate Blood Pressure 121/75 Blood Pressure [Le ft Arm] Blood Pressure [Ri ght Arm] Blood Pressure [Ri ght Upper Arm] Pulse Oximetry 96 97 96 Oxygen Delivery Me thod 04/25/24 17:02 06/09/24 17:15 04/25/24 17:30 Temperature Pulse Rate 72 68 69 Pulse Rate [Pulse Oximeter] Respiratory Rate Blood Pressure 133/74 Blood Pressure [Le ft Arm] Blood Pressure [Ri ght Arm] Blood Pressure [Ri ght Upper Arm] Pulse Oximetry 94 99 97 Oxygen Delivery Me thod 04/25/24 17:32 04/25/24 17:33 04/25/24 17:45 Temperature Pulse Rate 61 67 68 Pulse Rate [Pulse Oximeter] Respiratory Rate Blood Pressure 121/77 Blood Pressure [Le ft Arm] Blood Pressure [Ri ght Arm] Blood Pressure [Ri ght Upper Arm] Pulse Oximetry 97 97 98 Oxygen Delivery Me thod 04/25/24 18:00 04/25/24 18:02 04/25/24 18:15 Temperature Pulse Rate 69 64 69 Pulse Rate [Pulse Oximeter] Respiratory Rate Blood Pressure 128/73 Blood Pressure [Le ft Arm] Blood Pressure [Ri ght Arm] Blood Pressure [Ri ght Upper Arm] Pulse Oximetry 96 95 97 Oxygen Delivery Me thod 04/25/24 18:30 04/25/24 18:33 04/25/24 18:34 Temperature Pulse Rate 76 69 72 Pulse Rate [Pulse Oximeter] Respiratory Rate Blood Pressure 153/92 H Blood Pressure [Le ft Arm] Blood Pressure [Ri ght Arm] Blood Pressure [Ri ght Upper Arm] Pulse Oximetry 99 99 98 Oxygen Delivery Me thod 04/25/24 18:57 04/25/24 19:45 04/25/24 20:04 Temperature 98 F Pulse Rate Pulse Rate [Pulse Oximeter] 71 Respiratory Rate 18 Blood Pressure Blood Pressure [Le ft Arm] 141/93 H Blood Pressure [Ri ght Arm] Blood Pressure [Ri ght Upper Arm] Pulse Oximetry 98 92 92 Oxygen Delivery Me thod Room Air Room Air 04/25/24 20:05 04/25/24 20:07 04/25/24 20:35 Temperature 98.1 F Pulse Rate 70 Pulse Rate [Pulse Oximeter] 74 Respiratory Rate 16 16 Blood Pressure Blood Pressure [Le ft Arm] Blood Pressure [Ri ght Arm] 123/72 Blood Pressure [Ri ght Upper Arm] Pulse Oximetry 92 92 Oxygen Delivery Me thod Room Air Room Air 04/25/24 23:00 04/25/24 23:00 04/25/24 23:10 Temperature 98.1 F Pulse Rate 64 Pulse Rate [Pulse Oximeter] 67 67 Respiratory Rate 16 16 Blood Pressure Blood Pressure [Le ft Arm] Blood Pressure [Ri ght Arm] 120/73 Blood Pressure [Ri ght Upper Arm] Pulse Oximetry 93 Oxygen Delivery Me thod Room Air 04/26/24 03:00 04/26/24 08:30 04/26/24 08:30 Temperature 98.1 F 97.9 F Pulse Rate Pulse Rate [Pulse Oximeter] 87 71 71 Respiratory Rate 18 18 18 Blood Pressure Blood Pressure [Le ft Arm] Blood Pressure [Ri ght Arm] 138/81 128/75 Blood Pressure [Ri ght Upper Arm] Pulse Oximetry 91 96 Oxygen Delivery Me thod Room Air Room Air Labs Labs: Laboratory Results - last 24 hr 04/25/24 04/25/24 04/25/24 16:03 16:11 16:45 WBC 6.19 RBC 3.02 L Hgb 9.7 L Hct 30.2 L MCV 100 MCH 32 MCHC 32 RDW Coeff of Miguel 13.3 Plt Count 189 Neut % (Auto) 74.2 H Lymph % (Auto) 16.8 L [place] % (Auto) 6.5 Eos % (Auto) 2.1 Baso % (Auto) 0.2 Neut # (Auto) 4.60 Lymph # (Auto) 1.00 [place] # (Auto) 0.40 Eos # (Auto) 0.13 Baso # (Auto) 0.01 Abs Immat Gran (auto) 0.01 Imm/Tot Granulo (auto) 0.2 INR 0.94 APTT 29 VBG pH 7.394 VBG pCO2 45 VBG pO2 39.8 VBG HCO3 28 Sodium 137 Potassium 3.8 Chloride 104 Carbon Dioxide 27 Anion Gap 6 L BUN 26 Creatinine 1.4 Estimated Creat Clear 42.58 Estimated GFR 50 Glucose 127 H Lactate 1.3 Calcium 9.1 Iron 47 L TIBC 311 % Saturation 15 L Total Bilirubin 0.5 Direct Bilirubin 0.4 AST 22 ALT 15 Alkaline Phosphatase 142 Troponin I < 0.01 L C-Reactive Protein 0.6 Total Protein 6.6 Albumin 4.0 Stool Occult Blood Positive Lab Acknowledgement Test Added Blood Type B Positive Antibody Screen NEGATIVE 04/25/24 04/26/24 22:08 04:10 WBC RBC Hgb 9.0 L 9.1 L Hct MCV MCH MCHC RDW Coeff of Miguel Plt Count Neut % (Auto) Lymph % (Auto) [place] % (Auto) Eos % (Auto) Baso % (Auto) Neut # (Auto) Lymph # (Auto) [place] # (Auto) Eos # (Auto) Baso # (Auto) Abs Immat Gran (auto) Imm/Tot Granulo (auto) INR APTT VBG pH VBG pCO2 VBG pO2 VBG HCO3 Sodium 138 Potassium 4.1 Chloride 109 Carbon Dioxide 26 Anion Gap 3 L BUN 21 Creatinine 1.3 Estimated Creat Clear 45.86 Estimated GFR 55 Glucose 183 H Lactate Calcium 8.7 Iron TIBC % Saturation Total Bilirubin Direct Bilirubin AST ALT Alkaline Phosphatase Troponin I C-Reactive Protein Total Protein Albumin Stool Occult Blood Lab Acknowledgement Blood Type Antibody Screen
[2024-04-26 10:46] LABS: Hemoglobin* 9.6 gm/dL (13.5-17.5)
--- NOTE | 2024-04-26 11:00 | W.ANESCHARGE ---
Anesthesia Charges Start Date/Time Anesthesia Start Date: 04/26/24 Anesthesia Start Time: 11:30 Stop Date/Time Anesthesia Stop Date: 04/26/24 Anesthesia Stop Time: 11:45 Summary Emergency: MDA Extremes of Age - Over 70 or under 1: MDA
--- NOTE | 2024-04-26 11:50 | P.ANES_ITS ---
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
--- NOTE | 2024-04-26 11:50 | W.ANESCHARGE ---
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
--- NOTE | 2024-04-26 19:19 | PC.NURSE ---
Nursing Care Hours: [id number] Pt this shift calm and cooperative, alert and oriented. No c/o pain, VSS. Upper endoscopy done. ADAT, at pt tolerating well. DC IV fluids and SL. DC tele which showed NSR. Up with SB to independent ambulation in room. No insulin given per sliding scale. No BM reported.
[2024-04-26] MEDS: SODIUM CHLORIDE 0.9 % (FLUSH) 10 ML SYRINGE 5 ML IVF (21:09)
[2024-04-26] MEDS: PANTOPRAZOLE SODIUM 40 MG INJ IVP (21:09)
[2024-04-27 03:25] VITALS: BP 134/88; PULSE 77; RESP 16; TEMP 36.7; O2SAT 98
[2024-04-27 06:37] LABS: Basophils Absolute Auto 0.01 K/uL (0.00-0.30); Basophils Percent Auto 0.2 % (0.0-3.0); Eosinophils Absolute Auto 0.22 K/uL (0.00-0.50); Eosinophils Percent Auto 3.5 % (0.0-7.0); Hematocrit 28.6 % (37.0-53.0); Hemoglobin* 9.2 gm/dL (13.5-17.5); Immature Granulocytes Abs Auto 0.01 K/uL (0.00-0.30); Immature Granulocytes Pct Auto 0.2 %; Lymphocytes Percent Auto 16.9 % (20-44); Mean Corpuscular HGB Conc 32 gm/dL (32-36); Mean Corpuscular Hemoglobin 32 pg (26-34); Mean Corpuscular Volume 100 fL (80-100); Neutrophils Percent Auto 72.2 % (42.0-72.0); Platelet Count* 177 K/uL (140-440); RDW Coefficient of Variation % 13.6 % (11.5-15.5); Red Blood Count 2.86 m/uL (4.30-5.90); White Blood Count* 6.29 K/uL (4.50-11.00)
--- NOTE | 2024-04-27 06:37 | PC.NURSE ---
End of shift note [id number]: Pt alert & oriented x 4 and able to make needs known. VSS. Pt denying nausea when asked with no vomiting noted. Stool noted to be medium to dark brown in color with no blood observed. Pt continent of bowel and bladder. He transfers/ambulates independently in room using FWW. Blood glucose of 136 at HS. Last Hgb result of 9.0 last evening- pt and daughter Ashley updated. IV to L AC patent and SL. Pt has been denying pain when asked throughout the shift.?Pt reports he has slept well throughout the night.
[2024-04-27 06:49] LABS: Slide Review Reflex No
[2024-04-27 06:51] LABS: Chloride* 108 mmol/L (96-114); Potassium* 3.8 mmol/L (3.6-5.1); Sodium* 139 mmol/L (135-149)
[2024-04-27 06:53] LABS: Creatinine* 1.3 mg/dL (0.5-1.5); Est. Creatinine Clearance* 45.86; Estimated Glomerular Filt Rate 55 ml/min
[2024-04-27 06:54] LABS: Anion Gap 2 mEq/L (7-15); Blood Urea Nitrogen* 20 mg/dL (7-30); Calcium* 9.2 mg/dL (8.4-10.6); Carbon Dioxide* 29 mmol/L (20-32); Glucose* 118 mg/dL (60-115)
[2024-04-27 08:46] VITALS: BP 138/70; PULSE 86; RESP 18; TEMP 36.3; O2SAT 95
--- NOTE | 2024-04-27 10:01 | PM.DS1 ---
DS: Providers Provider Date Seen: 04/27/24 Date of admission: 04/25/24 18:01 Primary care physician: Branden Alvarenga MD Admitting Clinician: Brittany Olguin MD Consults: 04/25/24 18:50 Consult to Occupational Therapy [CONS] Routine Comment: Reason(s) for OT Consult:: Evaluate and Treat Any Restrictions?:: No Restrictions Consult to Physical Therapy [CONS] Routine Comment: Reason(s) for PT Consult:: Evaluate and Treat Any Restrictions?:: No Restrictions Consult to Mounting Machine Operator [CONS] Routine Comment: Reason for Consult:: Social Service Consult Attending Physician on discharge: Jose Diaz MD Date of Discharge: 04/27/24 DS: Diagnosis Discharge Diagnosis (1) Acute GI bleeding: Status: Acute Problem details: serial hgb IV pantoprazole clear diet fluids CT abdomen/pelvis ordered, then held, secondary to anaphylaxis in the in the radiology department. Can consider am of 04/26 with full staffing available. EGD ordered for am of 04/26 04/26: hold off on CT AP denies abdominal pain this AM, denies melena; Hgb stabilized, EGD pending 04/27: EGD showed a large non bleeding diverticulum in second portion of duodenum a widely patent non obstructing and moderate Schatzki ring was found in the distal esophagus Discharge hemoglobin 9.2 (2) Hypertension: Status: Acute Problem details: lisinopril was discontinued; HCTZ restarted (3) Status post right knee replacement: Status: Acute Problem details: - 03/17/24, Dr. Duffy (4) Type 2 diabetes mellitus: Status: Acute Problem details: - diet controlled, last A1C 6.3 DS: Summary Hospital Course Hospital Course: Chief Complaint: weak, black stools HPI: 83 y/o WM with a recent hx of TKA (right) at our hospital on 03/17/24 (Dr. Piper) presents with 3-4 days of black stools, increasing weakness. His VTE prophylaxis has been 81mg aspirin BID since surgery. No other anticoagulation. He went to urgent care and his aspirin was reduced to once daily, his hemoglobin was down two grams (12.8 post op to 10.8 at urgent care). He presented today with increasing weakness and continued black stools. He also has had vomiting earlier this week with black emesis. His last colonoscopy was 2017 with noted diverticula but otherwise negative. No previous GI bleed history. No ulcer hx. No abdominal pain. Hospital Course He was made NPO; serial hgb remained stable. Aspirin held. He underwent EGD which showed a large non bleeding diverticulum in second portion of duodenum a widely patent non obstructing and moderate Schatzki ring was found in the distal esophagus Discharge hemoglobin 9.2 PCP Post hospital follow up recs 1) Resumption of aspirin when clinically appropriate 2) GI referral for Schatzki Ring 3) BP mgmt evaluation Time Spent with Patient Time attestation: Total time spent providing and/or coordinating discharge services: Exam Narrative: Exam Narrative: Gen: no acute distress HEENT: NCAT EOMI mmm CV: RRR normal s1 s2 Lungs: CTAB Abd: Soft,nt, nd Neuro: Alert, oriented, CN grossly intact; nonfocal screening?exam Psych: appropriate affect MSK: age appropriate muscle mass Skin; Warm, dry no rash on face Const: Vital Signs, click to edit/add: Vital Signs - 24 hr 04/26/24 11:00 04/26/24 15:00 04/26/24 15:00 Temperature 97.4 F L Pulse Rate [Pulse Oximeter] 61 59 L 59 L Respiratory Rate 18 18 18 Blood Pressure [Le ft Arm] Blood Pressure [Ri ght Arm] 113/74 121/65 Pulse Oximetry 100 97 Oxygen Delivery Me thod Room Air Room Air 04/26/24 20:21 04/26/24 20:22 04/26/24 23:00 Temperature 98.1 F Pulse Rate [Pulse Oximeter] 74 78 Respiratory Rate 16 16 Blood Pressure [Le ft Arm] Blood Pressure [Ri ght Arm] 127/58 L Pulse Oximetry 95 95 Oxygen Delivery Me thod Room Air 04/26/24 23:40 04/27/24 03:25 04/27/24 08:46 Temperature 98.1 F 98.0 F 97.4 F L Pulse Rate [Pulse Oximeter] 78 77 86 Respiratory Rate 16 16 18 Blood Pressure [Le ft Arm] 138/70 Blood Pressure [Ri ght Arm] 133/76 134/88 Pulse Oximetry 95 98 95 Oxygen Delivery Me thod Room Air Room Air Room Air DS: Data Data Completed and Pending Labs on day of discharge: Labs from last 24 hours 04/27/24 04/26/24 04/26/24 06:01 20:40 10:40 WBC 6.29 RBC 2.86 L Hgb 9.2 L 9.0 L 9.6 L Hct 28.6 L MCV 100 MCH 32 MCHC 32 RDW Coeff of Miguel 13.6 Plt Count 177 Neut % (Auto) 72.2 H Lymph % (Auto) 16.9 L [place] % (Auto) 7.0 Eos % (Auto) 3.5 Baso % (Auto) 0.2 Neut # (Auto) 4.50 Lymph # (Auto) 1.10 [place] # (Auto) 0.40 Eos # (Auto) 0.22 Baso # (Auto) 0.01 Abs Immat Gran (auto) 0.01 Imm/Tot Granulo (auto) 0.2 Sodium 139 Potassium 3.8 Chloride 108 Carbon Dioxide 29 Anion Gap 2 L BUN 20 Creatinine 1.3 Estimated Creat Clear 45.86 Estimated GFR 55 Glucose 118 H Calcium 9.2 Additional Comments Additional comments: EGD EGD which showed a large non bleeding diverticulum in second portion of duodenum a widely patent non obstructing and moderate Schatzki ring was found in the distal esophagus Discharge hemoglobin 9.2 Discharge Plan Discharge Disposition: Home, Self-Care Date of Admission: 04/25/24 18:01 Attending Provider on Discharge: Jose Diaz Primary Care Provider: Branden Alvarenga Condition: Improved Anticipated Discharge Date/Time: 04/27/24 11:00 Discharge Medications: New omeprazole 40 mg capsule,delayed release(DR/EC) 40 mg PO DAILY Qty: 30 0RF Continued hydrochlorothiazide 25 mg tablet 25 mg PO DAILY multivitamin Tablet 1 tab PO DAILY cholecalciferol (vitamin D3) 50 mcg (2,000 unit) capsule 2,000 unit PO DAILY diphenhydramine HCl [Allergy (diphenhydramine)] 25 mg capsule 25 mg PO HS PRN acetaminophen 500 mg capsule 500 - 1,000 mg PO Q6H MDD 4000mg PRNQty: 100 0RF Held aspirin 81 mg tablet,chewable 81 mg PO DAILY Hold Instructions: Resume on 06/17/24. hold aspirin until it is restarted by primary care physician Discontinued lisinopril 40 mg tablet 40 mg PO DAILY Discharge Orders: Discharge Order (Routine); Ordered 04/27/24 Ordered By: Jose Diaz Patient Education: Omeprazole (By mouth), Gastrointestinal Bleeding (GEN), Anemia (DC) Activity Level: Activity as Tolerated Discharge Diet: Other Diet Detail: please return to previous home diet Follow Up Appointments: Branden Alvarenga MD [Primary Care Provider] - 04/30/24 11:15 am (Please follow up with Primary clinic 3-5 days post hospital follow up with PCP or any provider in clinic) Leidy Rhoades DO [Staff Physician] - 04/30/24 11:15 am ([facility] for follow-up.) Forms: Feedback Info Instructions Discharge Comments: Please follow up with your primary care provider in 3-5 days. Please hold aspirin until resumed by Primary Care provider.
== END 2024-04-27 11:15 | disposition home or self-care (01) ==
LOC: ED 16:14 → MEDSURG 18:02
PROVIDERS: Family Medicine; Hospitalist; Admitting Provider Family Medicine; Emergency Provider Emergency Medicine; PCP Family Medicine; Visit Provider Family Medicine
DX: K92.2 Gastrointestinal hemorrhage, unspecified (principal); D62 Acute posthemorrhagic anemia; R53.1 Weakness; R19.5 Other fecal abnormalities; I10 Essential (primary) hypertension; E11.9 Type 2 diabetes mellitus without complications; R53.83 Other fatigue; Z79.82 Long term (current) use of aspirin; Z90.79 Acquired absence of other genital organ(s); Z90.49 Acquired absence of other specified parts of digestive tract; Z87.19 Personal history of other diseases of the digestive system; Z96.653 Presence of artificial knee joint, bilateral; Z98.890 Other specified postprocedural states
CPT/HCPCS: 00731; 36415; 43235; 80048; 80076; 82270; 82803; 82962; 83540; 83550; 83605; 84484; 85018; 85025; 85610; 85730; 86140; 86850; 86900; 86901; 93005; 96361; 96365; 96366; 96372; 96374; 96375; 97116; 97161; 97165; 97530; 99100; 99140; 99284; G0378; C9113; J1200; J1720; J2704; J7030

== ENCOUNTER 2024-05-06 15:30 | Outpatient (RCR) | payer MEDICARE, BC, SELFPAY ==
--- NOTE | 2024-03-10 10:49 | PT.OPEX ---
PT [facility] PT [facility] Eval Start: 03/10/24 08:05 Freq: Status: Active Protocol: Document 03/10/24 10:42 KLV (Rec: 03/10/24 10:48 KLV [id number]) E-signed By Tory Marquis, PT Physical Therapy Outpatient Evaluation Insurance Information Recert Due Date 06/04/24 Insurance Name Medicare B,[employer] Medical Diagnosis R knee OA Pre and post operative TKA DOS 03/17/24 Treating Diagnosis Right knee pain, limited knee ROM, antalgic gait, muscle weakness Referring MD Duffy Subjective Subjective Don reports to PT with primary complaint of right knee pain with underlying end stage OA. He is a surgical candidate and plans to have R TKA 03/17/[address] Duffy. Previous L TKA. Currently lives alone in multilevel home; able to stay on main level until recovered. Daughter and son-in-law live about 10 minutes away however plan to stay with him while he is recovering. 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 PMH: prostate cancer, L TKA, abdominal hernia surgery with mild TIA following-no significant deficits noted from this Pain Comments -06/26 Date of Last Physician Visit 02/02/24 Current Work Status Retired Objective Other/Pertinent Objective Knee ROM: -R 10-108 Quad set good SLR flexion contracture however able to perform Severely tender medial joint line Assessment Assessment/Impression Jefferson is an 83 year old male presenting to PT for preparation of upcoming R TKA DOS 03/17/24 d/t end stage OA. Session focused on education of post-operative fall prevention precautions, transfers, gait with AD, stair negotiation, post-operative exercises. He is able to verbalize precautions and demonstrated independence with exercises, gait and stairs. He is appropriate to proceed with surgery at this time. Primary Functional Limitations Walking, standing, stair negotiation, squatting, lifting Plan of Care Rehabilitation Potential Good Physical Therapy Goals By end of session today, patient will... Demonstrate appropriate gait pattern with FWW to utilize post surgery for optimal safety when ambulating Demonstrate ability to negotiate stairs using appropriate stair pattern post surgery for optimal safety when at home and in community Verbalize understanding of most appropriate home set up including needed equipment for optimal safety and recovery post surgery Be independent in HEP program to show ability to perform appropriate exercises post surgery Treatment Plan/Direct Interventions Gait Training,Ice/Cold/ Vasopneumatic,Joint Mobilization,Manual Therapy, Neuromuscular Re-ed,Self-Care/ Home Management,Therapeutic Activities,Therapeutic Exercises Frequency/Duration Re-evaluate following surgery Patient Will Be Discharged From Therapy Completion of LTG(s), Independent w/HEP, Independently Progressing Evaluation Billing Untimed Code Treatment Minutes 25 Complexity Low Certification Information Initial Certification Date 03/10/24 Ending Certification Date 06/04/24 Provider Signature Shows Agreement With POC & Medical Necessity Physician Signature & Date Requested Please Sign/Date Here Physician Comment/Change : Physician NPI Number #
== END 2024-05-06 16:28 | disposition home or self-care (01) ==
PROVIDERS: PCP Family Medicine; Visit Provider Orthopaedic Surgery Sports Medicine
DX: M17.11 Unilateral primary osteoarthritis, right knee (principal); Z96.651 Presence of right artificial knee joint; M25.561 Pain in right knee; Z74.09 Other reduced mobility; R26.9 Unspecified abnormalities of gait and mobility; M62.81 Muscle weakness (generalized); Z51.89 Encounter for other specified aftercare
CPT/HCPCS: 97110; 97140; 97161; 97164; 97535

== ENCOUNTER 2024-07-03 08:49 | Outpatient (CLI) | payer MEDICARE, BC, SELFPAY | END 2024-07-03 08:50 | disposition home or self-care (01) | LOC: NFLDREF 07-05 06:24 | PROVIDERS: PCP Family Medicine; Referring Provider Family Medicine; Visit Provider Nurse Practitioner Family | DX: N30.00 Acute cystitis without hematuria (principal); B96.20 Unspecified Escherichia coli [E. coli] as the cause of diseases classified elsewhere | CPT/HCPCS: 87086; 87186 ==

== ENCOUNTER 2025-09-02 13:43 | Outpatient (CLI) | payer MEDICARE, BC, SELFPAY | END 2025-09-02 13:44 | disposition home or self-care (01) | LOC: NFLDREF 09-08 13:07 | PROVIDERS: PCP Family Medicine; Referring Provider Family Medicine; Visit Provider Physician Assistant Surgical | DX: N30.01 Acute cystitis with hematuria (principal) | CPT/HCPCS: 87086 ==